=== PATIENT | female | born 1930 ===

== ENCOUNTER 2017-03-01 13:26 | Emergency (ER) | payer MEDICARE ==
[2017-03-01 13:40] VITALS: BMI 20.8
[2017-03-01 13:43] VITALS: O2SAT 96
[2017-03-01 15:20] VITALS: BP 124/72; PULSE 59; RESP 14; TEMP 97.5
--- NOTE | 2017-03-01 15:21 | C.PDOC ---
History Of Present Illness 86 yr old female presents to the ER with right sided rib pain. Patient states she was in hindu[employer] and someone fell on her, causing her to fall back on her right side onto a chair. Patient states the pain is worse with movement and the pain comes and goes. Patient denies head trauma, difficulty breathing, chest pain, SOB, LOC, weakness or numbness. Time Seen by Provider: 03/01/17 14:10 Chief Complaint (Nursing): Rib Injury History Per: Patient History/Exam Limitations: no limitations Onset/Duration Of Symptoms: Sudden Onset Past Medical History Reviewed: Historical Data, Nursing Documentation, Vital Signs Vital Signs: Last Vital Signs Temp 97.5 F L 03/01/17 15:15 Pulse 59 L 03/01/17 15:15 Resp 14 03/01/17 15:15 BP 124/72 03/01/17 15:15 Pulse Ox 96 03/01/17 15:50 - Medical History PMH: HTN Family History: States: No Known Family Hx - Social History Hx Alcohol Use: No Hx Substance Use: No - Immunization History Hx Tetanus Toxoid Vaccination: No Hx Influenza Vaccination: No Hx Pneumococcal Vaccination: No Review Of Systems Except As Marked, All Systems Reviewed And Found Negative. Cardiovascular: Negative for: Chest Pain Respiratory: Negative for: Shortness of Breath Musculoskeletal: Positive for: Other ((+) Right sided rib pain) Neurological: Negative for: Weakness, Numbness Physical Exam - Physical Exam Appears: Non-toxic, No Acute Distress Skin: Warm, Dry, No Rash Head: Atraumatic, Normacephalic Eye(s): bilateral: Normal Inspection, EOMI Nose: Normal Oral Mucosa: Moist Neck: Normal, Normal ROM, Supple Chest: Symmetrical, Tenderness (Tenderness to the lateral posterior chest wall, right side. No echymosis.) Cardiovascular: Rhythm Regular, No Murmur Respiratory: Normal Breath Sounds, No Rales, No Rhonchi, No Stridor, No Wheezing Gastrointestinal/Abdominal: Normal Exam, Soft, No Tenderness Extremity: Normal ROM, No Swelling Neurological/Psych: Oriented x3, Normal Speech, Normal Motor ED Course And Treatment O2 Sat by Pulse Oximetry: 96 (RA) Pulse Ox Interpretation: Normal - Other Rad RIght Rib X-Ray: Interpreted by Me (and Dr burger), Viewed By Me Interpretation: no fx or pnuemothorax Medical Decision Making Medical Decision Making: PLAN: * X-Ray - Ribs & Chest * Tylneol PO Disposition - Disposition Disposition: HOME/ ROUTINE Disposition Time: 15:20 Condition: STABLE Additional Instructions: Follow up with your primary medical doctor or clinic in 2-5 days for further evaluation. Take medications as prescribed. Return to the emergency department at any time if symptoms persist or worsen. 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 - Scribe Statement The provider has reviewed the documentation as recorded by the Scribe Sherly Amaya All medical record entries made by the Scribe were at my direction and personally dictated by me. I have reviewed the chart and agree that the record accurately reflects my personal performance of the history, physical exam, medical decision making, and the department course for this patient. I have also personally directed, reviewed, and agree with the discharge instructions and disposition.
--- NOTE | 2017-03-01 16:49 | RAD ---
PROCEDURE: Radiographs of the Chest and Right Ribs. HISTORY: trauma COMPARISON: None available. TECHNIQUE: Frontal radiograph of the chest and multiple oblique radiographs of the right ribs were obtained. FINDINGS: RIGHT RIBS: No fracture or focal lesion visualized. LUNGS: Clear. PLEURA: No pneumothorax or pleural fluid. CARDIOVASCULAR: No radiographic findings to suggest acute or significant cardiovascular disease. OTHER FINDINGS: None. IMPRESSION: Unremarkable radiographs of the chest and right ribs. No right rib fracture. Please note: No preliminary report/ innterpretation of this examination provided by emergency department personnel.
== END 2017-03-01 15:52 | disposition home or self-care (01) ==
LOC: C.ER 13:26
DX: S20.211A Contusion of right front wall of thorax, initial encounter (principal); W18.30XA Fall on same level, unspecified, initial encounter; Y92.22 Religious institution as the place of occurrence of the external cause